=== PATIENT | female | born 1955 | race Caucasian/White ===

== ENCOUNTER 2024-10-02 13:20 | Outpatient (CLI) | payer MEDICARE, MEDICAID | END 2024-10-02 23:59 | disposition home or self-care (01) | LOC: RAD 13:20 | PROVIDERS: ATTEND Student in an Organized Health Care Education/Training Program | DX: Z12.2 Encounter for screening for malignant neoplasm of respiratory organs (principal); J18.1 Lobar pneumonia, unspecified organism; Z87.891 Personal history of nicotine dependence | CPT/HCPCS: 71271 ==